=== PATIENT | female | born 1960 | race Caucasian/White ===

== ENCOUNTER 2020-10-24 05:45 | Day surgery (SDC) | payer MEDICARE ==
--- NOTE | 2020-10-05 15:20 | HP ---
REASON FOR HISTORY AND PHYSICAL: Surgery on 10/11/2020. Case number is [id number]. HISTORY OF PRESENT ILLNESS: Ms. Kerns is a 60-year-old female with a chief complaint of lower back and right leg pain for the past 5 years. Her pain and paresthesias radiate into her right gluteal muscle and to her posterior thigh, not passing her knee. She has tried spinal epidural injections, physical therapy, and medications without any lasting relief. She is unable to walk very far due to her symptoms. Sitting and leaning forward help alleviate some of her symptoms. She denied bladder or bowel dysfunction. REVIEW OF SYSTEMS: CONSTITUTIONAL: Denies fever or chills. HEENT: Denies change in vision or hearing. CARDIAC: Denies chest pain, shortness of breath, or diaphoresis. PULMONARY: Denies shortness of breath, cough, or hemoptysis. GI: Denies abdominal pain, nausea, vomiting, diarrhea, change in stool formation or consistency. : Denies trouble with urination, frequency of urination, or bloody urine. SKIN: Denies skin rash, bruising, bleeding, or skin masses. MUSCULOSKELETAL: As per history of present illness. NEUROLOGIC: As per history of present illness. PSYCHOLOGIC: Denies anxiety, depression, or behavior changes. MEDICAL HISTORY: 1. Anxiety. 2. Arthritis. 3. Asthma. 4. Seasonal allergies. 5. Chronic pain. FAMILY HISTORY: Father , diagnosed with heart disease. Mother . SOCIAL HISTORY: Nonsmoker. Denies alcohol or illicit drug use. MEDICATIONS: 1. Topical hydrocortisone 2.5% cream. 2. Hydroxychloroquine 200 mg. 3. Omeprazole 40 mg. 4. Albuterol HFA two puffs p.r.n. ALLERGIES: ASPIRIN, NSAIDS, AND BACTRIM. PHYSICAL EXAMINATION: VITAL SIGNS: Weight 142 pounds, height 5 feet 1 inch, and BMI 26.83. HEENT: Pupils are equal. Extraocular movements are intact. NECK: Soft and supple. No masses are noted. Range of motion is intact and nonpainful. NEUROLOGIC: Awake, alert, and oriented x3. Memory, attention, and fund of knowledge normal. Cranial nerves are grossly intact. Lower extremities; she has 5/5 strength bilateral in her iliopsoas, quadriceps, hamstring, anterior tib, EHL, and gastrocnemius. There is no area of dermatomal sensory loss. Reflexes are symmetric. Toes are downgoing. Gait and station are normal. IMAGING STUDIES: From [facility]: MRI of the L-spine, L4-L5 herniated lumbar disks, severe canal and bilateral recess stenosis. X-ray of the L-spine, flexion and extension stable. ASSESSMENT: Spinal stenosis of lumbar region with neurogenic claudication. PLAN: 1. Laminectomy L4-L5. 2. Preoperative labs; CBC, PT, PTT, COVID-19 testing. 3. Clearance for surgery. INFORMED CONSENT: We discussed the indications, risks, benefits, alternatives, and expected results from surgery. The risks discussed included, but were not limited to, bleeding, infection, CSF leak, nerve damage, weakness, incontinence, cauda equina injury, arachnoiditis, paralysis, ventilator dependency, wheelchair dependency, loss of vision, cardiopulmonary complications of anesthesia or . Long-term complications discussed included, but were not limited to, spinal instability and future surgery. She understands the risks and is willing to proceed. Job ID: [id number] MTDD
[2020-10-20 11:08] VITALS: BMI 27.6
[2020-10-24] MEDS ORDERED: EPINEPHrine 1 MG/ML AMP ONE (06:10)
[2020-10-24] MEDS ORDERED: Bupivacaine PF 0.5% 30 ML VIAL ONE (06:10)
[2020-10-24] MEDS ORDERED: Thrombin 5000 UNITS/5 ML VIAL ONE (06:10)
[2020-10-24] MEDS ORDERED: Famotidine/PF 20 mg/2ml Vial ONE (06:31)
[2020-10-24] MEDS ORDERED: Scopolamine 1.5 mg/72 hour Patch ONE (06:31)
[2020-10-24] MEDS ORDERED: Midazolam HCl 2 mg/2 ml Vial ONE ×2 (06:32→09:22)
[2020-10-24 06:48] LABS: PTT 27.8 sec (22.9-36.1); Prothrombin Time 13.6 sec (12.0-14.7)
[2020-10-24] MEDS ORDERED: Fentanyl 250 MCG/5 ML VIAL ONE (06:48)
[2020-10-24] MEDS ORDERED: Mineral Oil Sterile 10ML 10 ML UDCUP ONE (08:01)
[2020-10-24] MEDS ORDERED: SUGAMMADEX SODIUM 200 MG/2 ML VIAL ONE (08:59)
--- NOTE | 2020-10-24 09:27 | OP ---
DATE OF PROCEDURE: 10/24/2020 [employer]MER: Arnoldo Villasenor PA-C PREOPERATIVE INDICATION: Treat pain, prevent neurological deterioration. PREOPERATIVE DIAGNOSIS: Lumbar stenosis with neurogenic claudication at L4-5. POSTOPERATIVE DIAGNOSIS: Lumbar stenosis with neurogenic claudication at L4-5. OPERATIVE PROCEDURE: Decompressive laminectomy, medial facetectomy, and foraminotomy at L4-5. PREOPERATIVE MEDICATION: Ancef 2 g IV. DRAIN NUMBER: Zero. DRAIN TYPE: None. DESCRIPTION OF PROCEDURE: The patient was brought to the operating room. General endotracheal anesthesia was induced. The patient was carefully positioned prone with her chest and hips supported by gel-filled chest rolls. A lateral fluoro radiograph was used to plan our incision. The lumbar skin was sterilely prepped and draped. We opened with a 10 blade knife. We controlled bleeding with bipolar and monopolar cautery. We dissected through subcutaneous tissues to the thoracodorsal fascia. We incised the fascia in the midline and reflected the paraspinal muscles off the spinous process and lamina of L4 and L5. A self-retaining retractor was placed. A lateral fluoro radiograph confirmed the level upon which we were operating. We then used Adson rongeurs and removed the spinous process of L4 and the top of L5. Kerrison rongeurs were used to fashion a laminectomy. In order for the laminectomy to decompress the lateral recesses at the interspace, we needed to perform medial facetectomies on both sides. We identified the traversing L5 nerve roots. We performed foraminotomies over the exit points of these nerve roots. We removed a few millimeters of the top of L5 to decompress across the interspace. We irrigated with bacitracin irrigation. We waxed the bone edges. We controlled bleeding with gentle bipolar cautery. We infused local anesthetic in the paraspinal muscles. We treated the wound with vancomycin powder after copious amounts of bacitracin irrigation. We closed in anatomical layers. We applied a sterile dressing. Clean case. No contamination. Job ID: [id number]
[2020-10-24] MEDS ORDERED: Fentanyl 100 MCG/2 ML VIAL ONE (10:23)
== END 2020-10-24 12:23 | disposition home or self-care (01) ==
LOC: SDC 05:45
PROVIDERS: ATTEND Neurological Surgery
PROC: 01NB0ZZ Release Lumbar Nerve, Open Approach (ICD-10-PCS; principal; 2020-10-24)
DX: M48.062 Spinal stenosis, lumbar region with neurogenic claudication (principal); F41.9 Anxiety disorder, unspecified; M19.90 Unspecified osteoarthritis, unspecified site; J45.909 Unspecified asthma, uncomplicated; Z79.899 Other long term (current) drug therapy; Z88.2 Allergy status to sulfonamides; Z88.6 Allergy status to analgesic agent; Z87.891 Personal history of nicotine dependence
CPT/HCPCS: 36415; 76000; 85610; 85730; J0171; J0690; J2250; J3010; J3370; J3490; S0020; S0028